=== PATIENT | female | born 1995 | race Caucasian/White ===

== ENCOUNTER 2020-02-29 07:42 | Emergency (ER) | payer MEDICAID ==
[~2020-02-29] VITALS: Ht 157.5 cm; Wt 113.0 kg
[2020-02-29 08:34] VITALS: BP 133/66
[2020-02-29 08:41] LABS: BASOPHILS % 0.8 % (0.0-2.0); EOSINOPHILS % 7.6 % (0.0-5.0); HEMATOCRIT. 35.3 % (36.0-48.0); HEMOGLOBIN. 12.2 g/dL (12.0-16.0); LYMPHOCYTES % 35.4 % (20.0-50.0); MEAN CORPUSCULAR HEMOGLOBIN 29.2 pg (28.0-32.0); MEAN CORPUSCULAR VOLUME 84.6 fL (81.0-99.0); MEAN PLATELET VOLUME 9.3 fl (7.4-10.4); MONOCYTES % 14.5 % (2.0-8.0); NEUTROPHILS % 41.7 % (40.0-76.0); PLATELET 208 x1000/uL (130-400); RED BLOOD CELL COUNT 4.17 mill/uL (4.2-5.4); RED CELL DISTRIBUTION WIDTH 14.8 % (11.6-14.6)
[2020-02-29 08:50] LABS: CHLORIDE 107 mEq/L (98-107)
[2020-02-29 09:18] LABS: B-HCG QUANTITATIVE 8473 mIU/mL (<3)
[2020-02-29 09:48] LABS: CLARITY URINE CLOUDY (CLEAR); COLOR URINE YELLOW (YELLOW); KETONES URINE NEGATIVE (NEGATIVE); LEUKOCYTE ESTERASE URINE TRACE (NEGATIVE); NITRITE URINE NEGATIVE (NEGATIVE); OCCULT BLOOD URINE 3+ (NEGATIVE); PROTEIN URINE TRACE (NEGATIVE); SPECIFIC GRAVITY URINE 1.019 (1.005-1.030); UROBILINOGEN URINE 0.2 E.U./dL (0.2-1.0)
== END 2020-02-29 10:07 | disposition home or self-care (01) ==
LOC: ER 07:42
DX: O20.0 Threatened abortion (principal); Z3A.01 Less than 8 weeks gestation of pregnancy; Z90.49 Acquired absence of other specified parts of digestive tract
CPT/HCPCS: 36415; 76801; 80053; 81003; 81025; 84702; 85025; 86850; 86900; 99285

== ENCOUNTER 2020-03-02 04:52 | Emergency (ER) | payer MEDICAID ==
[~2020-03-02] VITALS: Ht 157.5 cm; Wt 114.0 kg
[2020-03-02] MEDS ORDERED: ACETAMINOPHEN 325MG TABLET PO ONE (05:45)
[2020-03-02 05:57] LABS: CHLORIDE 104 mEq/L (98-107)
[2020-03-02 06:02] LABS: BASOPHILS % 0.5 % (0.0-2.0); EOSINOPHILS % 6.6 % (0.0-5.0); HEMOGLOBIN. 12.3 g/dL (12.0-16.0); LYMPHOCYTES % 39.9 % (20.0-50.0); MEAN CORPUSCULAR HEMOGLOBIN 28.9 pg (28.0-32.0); MEAN CORPUSCULAR VOLUME 84.8 fL (81.0-99.0); MEAN PLATELET VOLUME 9.4 fl (7.4-10.4); PLATELET 238 x1000/uL (130-400); RED BLOOD CELL COUNT 4.25 mill/uL (4.2-5.4); RED CELL DISTRIBUTION WIDTH 14.6 % (11.6-14.6)
[2020-03-02 06:20] LABS: B-HCG QUANTITATIVE 5765 mIU/mL (<3)
[2020-03-02 08:52] VITALS: BP 122/54
== END 2020-03-02 08:57 | disposition home or self-care (01) ==
LOC: ER 04:52
DX: O03.9 Complete or unspecified spontaneous abortion without complication (principal)
CPT/HCPCS: 36415; 76801; 80048; 84702; 85025; 86850; 86900; 88305; 99284

== ENCOUNTER 2020-08-09 08:57 | Emergency (ER) | payer MEDICAID ==
[~2020-08-09] VITALS: Ht 157.5 cm; Wt 118.2 kg
[2020-08-09 09:27] VITALS: BP 127/81
[2020-08-09] MEDS ORDERED: ACETAMINOPHEN 500MG TABLET PO ONE (10:15)
== END 2020-08-09 10:22 | disposition home or self-care (01) ==
LOC: ER 09:39
DX: R06.02 Shortness of breath (principal); J02.9 Acute pharyngitis, unspecified; R05 Cough
CPT/HCPCS: 87635; 99283; C9803

== ENCOUNTER 2020-09-07 11:03 | Emergency (ER) | payer MEDICAID ==
[~2020-09-07] VITALS: Ht 157.5 cm; Wt 113.0 kg
[2020-09-07] MEDS ORDERED: ACETAMINOPHEN 325MG TABLET PO ONE (12:30)
[2020-09-07] MEDS ORDERED: SODIUM CHLORIDE 0.9% 1,000 ML IV ONE (12:30)
[2020-09-07 12:58] LABS: BASOPHILS % 0.3 % (0.0-2.0); EOSINOPHILS % 11.5 % (0.0-5.0); HEMATOCRIT. 38.2 % (36.0-48.0); HEMOGLOBIN. 12.9 g/dL (12.0-16.0); MEAN CORPUSCULAR HEMOGLOBIN 28.6 pg (28.0-32.0); MEAN CORPUSCULAR VOLUME 84.6 fL (81.0-99.0); MEAN PLATELET VOLUME 9.5 fl (7.4-10.4); MONOCYTES % 12.9 % (2.0-8.0); NEUTROPHILS % 45.3 % (40.0-76.0); PLATELET 217 x1000/uL (130-400); RED BLOOD CELL COUNT 4.51 mill/uL (4.2-5.4); RED CELL DISTRIBUTION WIDTH 15.4 % (11.6-14.6)
[2020-09-07 13:04] LABS: CHLORIDE 107 mEq/L (98-107)
[2020-09-07 13:14] LABS: B-HCG QUANTITATIVE 68 mIU/mL (<3)
[2020-09-07 14:03] VITALS: BP 126/84
[2020-09-07 14:06] LABS: CLARITY URINE CLOUDY (CLEAR); COLOR URINE DARK YELLOW (YELLOW); KETONES URINE NEGATIVE (NEGATIVE); LEUKOCYTE ESTERASE URINE TRACE (NEGATIVE); NITRITE URINE NEGATIVE (NEGATIVE); OCCULT BLOOD URINE TRACE (NEGATIVE); PH URINE 5.5 (4.5-8.0); PROTEIN URINE TRACE (NEGATIVE); SPECIFIC GRAVITY URINE 1.033 (1.005-1.030); UROBILINOGEN URINE 0.2 E.U./dL (0.2-1.0)
[2020-09-07 14:20] LABS: *AMPHETAMINES SCREEN URINE NEGATIVE (NEGATIVE)
[2020-09-07 14:21] LABS: *BARBITURATES SCREEN URINE NEGATIVE (NEGATIVE); *BENZODIAZEPINES SCREEN URINE NEGATIVE (NEGATIVE); *COCAINE SCREEN URINE NEGATIVE (NEGATIVE); OPIATES URINE SCREEN NEGATIVE (NEGATIVE); PHENCYCLIDINE URINE SCREEN NEGATIVE (NEGATIVE)
[2020-09-07 14:24] LABS: METHADONE URINE SCREEN NEGATIVE (NEGATIVE)
[2020-09-07 14:30] LABS: CANNABINOID URINE SCREEN PRESUMTIVE POSITIVE (NEGATIVE)
[2020-09-07] MEDS ORDERED: POTASSIUM CHLORIDE 20MEQ TABLET SR PO NR (15:00)
[2020-09-07] MEDS ORDERED: CEPHALEXIN 250MG CAPSULE PO NR (15:00)
== END 2020-09-07 15:04 | disposition home or self-care (01) ==
LOC: ER 11:03
DX: O23.41 Unspecified infection of urinary tract in pregnancy, first trimester (principal); O16.1 Unspecified maternal hypertension, first trimester; O26.891 Other specified pregnancy related conditions, first trimester; E87.6 Hypokalemia; O99.211 Obesity complicating pregnancy, first trimester; Z3A.01 Less than 8 weeks gestation of pregnancy
CPT/HCPCS: 36415; 76801; 76817; 80053; 80305; 81003; 81025; 84702; 85025; 86850; 86900; 86901; 93005; 99285; J7030

== ENCOUNTER 2020-09-09 12:26 | Emergency (ER) | payer MEDICAID ==
[~2020-09-09] VITALS: Ht 157.5 cm; Wt 113.0 kg
[2020-09-09 13:32] LABS: HEMOGLOBIN. 11.9 g/dL (12.0-16.0); MEAN CORPUSCULAR HEMOGLOBIN 28.8 pg (28.0-32.0); MEAN CORPUSCULAR VOLUME 84.9 fL (81.0-99.0); MEAN PLATELET VOLUME 9.3 fl (7.4-10.4); PLATELET 192 x1000/uL (130-400); RED BLOOD CELL COUNT 4.13 mill/uL (4.2-5.4); RED CELL DISTRIBUTION WIDTH 15.6 % (11.6-14.6)
[2020-09-09 13:40] LABS: CHLORIDE 107 mEq/L (98-107)
[2020-09-09 13:54] LABS: PLATELET ESTIMATE NORMAL
[2020-09-09 13:56] LABS: B-HCG QUANTITATIVE 158 mIU/mL (<3)
[2020-09-09 14:30] VITALS: BP 118/76
== END 2020-09-09 15:32 | disposition home or self-care (01) ==
LOC: ER 12:48
DX: O20.0 Threatened abortion (principal); Z3A.00 Weeks of gestation of pregnancy not specified
CPT/HCPCS: 36415; 76801; 80053; 84702; 85025; 86850; 86900; 99285

== ENCOUNTER 2020-10-12 03:44 | Emergency (ER) | payer MEDICAID ==
[~2020-10-12] VITALS: Ht 157.5 cm; Wt 118.0 kg
[2020-10-12 05:11] LABS: CLARITY URINE CLEAR (CLEAR); COLOR URINE YELLOW (YELLOW); KETONES URINE NEGATIVE (NEGATIVE); LEUKOCYTE ESTERASE URINE TRACE (NEGATIVE); NITRITE URINE NEGATIVE (NEGATIVE); OCCULT BLOOD URINE 1+ (NEGATIVE); PROTEIN URINE NEGATIVE (NEGATIVE); SPECIFIC GRAVITY URINE 1.029 (1.005-1.030); UROBILINOGEN URINE 0.2 E.U./dL (0.2-1.0)
[2020-10-12 05:13] LABS: BASOPHILS % 0.8 % (0.0-2.0); EOSINOPHILS % 7.9 % (0.0-5.0); HEMATOCRIT. 36.2 % (36.0-48.0); HEMOGLOBIN. 12.2 g/dL (12.0-16.0); LYMPHOCYTES % 35.6 % (20.0-50.0); MEAN CORPUSCULAR HEMOGLOBIN 28.9 pg (28.0-32.0); MEAN CORPUSCULAR VOLUME 85.5 fL (81.0-99.0); MEAN PLATELET VOLUME 9.5 fl (7.4-10.4); MONOCYTES % 11.2 % (2.0-8.0); NEUTROPHILS % 44.5 % (40.0-76.0); PLATELET 213 x1000/uL (130-400); RED BLOOD CELL COUNT 4.24 mill/uL (4.2-5.4); RED CELL DISTRIBUTION WIDTH 15.1 % (11.6-14.6)
[2020-10-12 05:17] LABS: CHLORIDE 106 mEq/L (98-107)
[2020-10-12 06:29] LABS: B-HCG QUANTITATIVE 46127 mIU/mL (<3)
[2020-10-12 08:04] VITALS: BP 139/79
== END 2020-10-12 08:08 | disposition home or self-care (01) ==
LOC: ER 03:44
DX: O20.0 Threatened abortion (principal); Z3A.08 8 weeks gestation of pregnancy
CPT/HCPCS: 36415; 76801; 80048; 81003; 81025; 84702; 85025; 86850; 86900; 99285

== ENCOUNTER 2022-03-02 11:47 | Emergency (ER) | payer MEDICAID, OTHER ==
[~2022-03-02] VITALS: Ht 165.1 cm; Wt 105.0 kg
[2022-03-02] MEDS ORDERED: IBUP-2029 MT (12:44)
[2022-03-02] MEDS ORDERED: SULF1TAB48 MT (12:44)
[2022-03-02] MEDS ORDERED: CEPH500T MT (12:44)
[2022-03-02] MEDS ORDERED: IBUPROFEN 800MG TABLET PO ONE (12:45)
[2022-03-02 13:04] VITALS: BP 116/62
== END 2022-03-02 13:11 | disposition home or self-care (01) ==
LOC: ER 11:47
DX: L02.31 Cutaneous abscess of buttock (principal)
CPT/HCPCS: 99283